=== PATIENT | male | born 1970 | race African-American/Black ===

== ENCOUNTER 2021-04-15 14:00 | Outpatient (CLI) | payer OTHER ==
[2021-04-15 15:09] LABS: Mean Corpuscular HGB CONC 32.5 g/dL (32.0-36.0); Mean Corpuscular Hemoglobin 28.4 pg (27.0-33.0); Mean Corpuscular Volume 87.3 fl (81.2-95.1); Mean Platelet Volume 9.8 fl (7.4-10.4); Platelet Count 311 10x3/uL (150-450); RBC Distribution Width 14.1 % (11.5-14.5); Red Blood Cell (RBC) Count 4.58 10x6/uL (4.32-5.72); White Blood Cell (WBC) Count 6.3 10x3/uL (3.5-10.5)
[2021-04-15 15:27] LABS: Anion Gap 14 mmol/L (10-20); BUN (Urea Nitrogen) 9 mg/dL (8.4-25.7); Calc. Creatinine Clearance 0 mL/min (70-130); Calcium 9.7 mg/dL (7.8-10.44); Carbon Dioxide 27 mmol/L (22-29); Chloride 104 mmol/L (98-107); Glucose 108 mg/dL (70-105); Potassium 4.5 mmol/L (3.5-5.1); Sodium 140 mmol/L (136-145)
[2021-04-16 15:31] LABS: SARS-CoV-2 PCR by NAA Not Detected (NotDetected)
== END 2021-04-15 14:01 | disposition home or self-care (01) ==
LOC: LABBT 14:00
PROVIDERS: ATTEND Neurological Surgery
DX: Z01.818 Encounter for other preprocedural examination (principal); M54.16 Radiculopathy, lumbar region; Z20.822 Contact with and (suspected) exposure to COVID-19
CPT/HCPCS: 80048; 85027; 93005; 93010; U0003; U0005

== ENCOUNTER 2021-04-20 06:20 | Day surgery (SDC) | payer OTHER ==
[2021-04-18 14:40] VITALS: BMI 30.7
[2021-04-20] MEDS ORDERED: SUGAMMADEX SODIUM 200 MG/2 ML VIAL ONE (06:56)
[2021-04-20] MEDS ORDERED: Fentanyl 100 MCG/2 ML VIAL ONE ×4 (06:56→11:20)
[2021-04-20] MEDS ORDERED: ceFAZolin 2 GM/DEX 5% 100 ML BAG ONE (07:23)
[2021-04-20] MEDS ORDERED: Ondansetron PF 4 MG/2 ML Vial ONE (07:48)
[2021-04-20] MEDS ORDERED: Lidocaine 1% PF 5 ML VIAL ONE (07:48)
[2021-04-20] MEDS ORDERED: Phenylephrine 10 MG/ML VIAL ONE (07:48)
[2021-04-20] MEDS ORDERED: PROPOFOL 200 MG/20 ML VIAL ONE (07:48)
[2021-04-20] MEDS ORDERED: Rocuronium Bromide 10 MG/ML (10ML VIAL) ONE (07:48)
[2021-04-20] MEDS ORDERED: Dexamethasone 20 MG/5 ML VIAL ONE (07:48)
[2021-04-20] MEDS ORDERED: HYDROmorphone 0.5 MG/0.5 ML SYRINGE ONE ×4 (10:26→11:01)
[2021-04-20] MEDS ORDERED: Tamsulosin HCl 0.4 MG CAP ONE (11:23)
[2021-04-20] MEDS ORDERED: Gabapentin 300 MG CAP ONE (12:15)
== END 2021-04-20 13:58 | disposition home or self-care (01) ==
LOC: SDC 06:20
PROVIDERS: ATTEND Neurological Surgery
PROC: 0SG00AJ Fusion of Lumbar Vertebral Joint with Interbody Fusion Device, Posterior Approach, Anterior Column, Open Approach (ICD-10-PCS; principal; 2021-04-20)
PROC: 0SG10J1 Fusion of 2 or more Lumbar Vertebral Joints with Synthetic Substitute, Posterior Approach, Posterior Column, Open Approach (ICD-10-PCS; principal; 2021-04-20)
PROC: 0QJY0ZZ Inspection of Lower Bone, Open Approach (ICD-10-PCS; principal; 2021-04-20)
DX: M54.16 Radiculopathy, lumbar region (principal); Z79.899 Other long term (current) drug therapy
CPT/HCPCS: 76000; C1713; C1768; C1776; J1170; J3010; J3370

== ENCOUNTER 2021-04-21 13:59 | Inpatient (IN) | payer MEDICARE, OTHER ==
[2021-04-21] MEDS ORDERED: Fentanyl 100 MCG/2 ML VIAL ONE ×2 (15:53→17:34)
[2021-04-21] MEDS ORDERED: Ondansetron PF 4 MG/2 ML Vial IVP PRN (17:12)
[2021-04-21] MEDS ORDERED: Promethazine 25 MG TAB PO PRN (17:12)
[2021-04-21] MEDS ORDERED: HYDROcodone/Acetaminophen 10/325 mg Tablet PO PRN (17:12)
[2021-04-21] MEDS ORDERED: diphenhydrAMINE 50 MG/ML VIAL IVP PRN (17:12)
[2021-04-21] MEDS ORDERED: Milk Of Magnesia 30 ML UDCUP PO PRN (17:12)
[2021-04-21] MEDS ORDERED: Mag-Al 1200 mg/1200 mg/30 ML UDCUP PO PRN (17:12)
[2021-04-21] MEDS: Morphine 4 MG/ML VIAL SLOW IVP PRN (21:01)
[2021-04-21] MEDS: Sodium Chloride 0.9% 1,000 ML IV SCH (21:06)
[2021-04-21] MEDS: Gabapentin 300 MG CAP PO SCH (21:06)
[2021-04-21] MEDS: oxyCODONE/Acetaminophen 5 mg/325 mg Tablet PO PRN (21:22)
[2021-04-21 22:59] VITALS: BMI 31.4
[2021-04-22] MEDS: oxyCODONE/Acetaminophen 5 mg/325 mg Tablet PO PRN ×5 (02:45→20:59)
[2021-04-22] MEDS: Sodium Chloride 0.9% 1,000 ML IV SCH (07:11)
[2021-04-22] MEDS: Gabapentin 300 MG CAP PO SCH ×3 (08:56→21:00)
[2021-04-22] MEDS: tiZANidine HCl 4 MG TAB PO PRN ×2 (08:56→21:00)
[2021-04-22] MEDS ORDERED: Docusate 100 MG CAP PO SCH (09:00)
[2021-04-22] MEDS: Morphine 4 MG/ML VIAL SLOW IVP PRN ×2 (09:10→18:42)
[2021-04-22] MEDS ORDERED: Venlafaxine HCl XR 75 MG CAP PO SCH (09:15)
[2021-04-22 15:52] VITALS: BP 147/83; TEMP 98.9
[2021-04-23] MEDS ORDERED: Venlafaxine HCl XR 75 MG CAP PO SCH (09:00)
== END 2021-04-22 21:16 | DRG 455 ==
LOC: ERS 13:59 → SJJU 17:12
PROVIDERS: ADMIT Neurological Surgery; ATTEND Neurological Surgery
PROC: 0QJY0ZZ Inspection of Lower Bone, Open Approach (ICD-10-PCS; principal; 2021-04-20)
PROC: 0SG00AJ Fusion of Lumbar Vertebral Joint with Interbody Fusion Device, Posterior Approach, Anterior Column, Open Approach (ICD-10-PCS; 2021-04-20)
PROC: 0SG10J1 Fusion of 2 or more Lumbar Vertebral Joints with Synthetic Substitute, Posterior Approach, Posterior Column, Open Approach (ICD-10-PCS; 2021-04-20)
DX: M54.16 Radiculopathy, lumbar region (principal); G89.18 Other acute postprocedural pain; E78.5 Hyperlipidemia, unspecified; I10 Essential (primary) hypertension; G89.29 Other chronic pain; F17.210 Nicotine dependence, cigarettes, uncomplicated; F43.10 Post-traumatic stress disorder, unspecified; E78.00 Pure hypercholesterolemia, unspecified; F41.9 Anxiety disorder, unspecified; F32.A Depression, unspecified; Z90.49 Acquired absence of other specified parts of digestive tract; Z98.1 Arthrodesis status; Z79.899 Other long term (current) drug therapy
CPT/HCPCS: 76000; 96374; 96376; C1713; C1768; C1776; J1100; J1170; J2270; J2370; J2405; J2704; J3010; J3370; J7050

== ENCOUNTER 2021-05-03 11:57 | Outpatient (CLI) | payer OTHER | END 2021-05-03 11:58 | disposition home or self-care (01) | LOC: TBSIIMAG 11:57 | PROVIDERS: ATTEND Neurological Surgery | DX: M51.16 Intervertebral disc disorders with radiculopathy, lumbar region (principal); M47.26 Other spondylosis with radiculopathy, lumbar region | CPT/HCPCS: 72100 ==

== ENCOUNTER 2022-02-03 14:30 | Inpatient (IN) | payer OTHER ==
[2022-02-24 10:02] VITALS: BMI 32.4
[2022-02-27] MEDS ORDERED: Lidocaine 1% MPF 2 ML VIAL ONE (06:29)
[2022-02-27] MEDS ORDERED: Sodium Chloride 0.9% 100 ML ONE (06:29)
[2022-02-27] MEDS ORDERED: CEFAZOLIN 2 GM VIAL ONE (06:29)
[2022-02-27] MEDS ORDERED: Midazolam HCl 2 mg/2 ml Vial ONE (07:11)
[2022-02-27] MEDS ORDERED: Ketamine 50 MG/ML (10ML VIAL) ONE (07:18)
[2022-02-27] MEDS ORDERED: fentaNYL Citrate/PF 100 MCG/2 ML SYRINGE ONE ×2 (07:18→08:55)
[2022-02-27] MEDS ORDERED: traMADol HCl 50 MG TAB PO PRN (07:23)
[2022-02-27] MEDS ORDERED: Cyclobenzaprine 10 MG TAB PO PRN (07:23)
[2022-02-27] MEDS ORDERED: Mag-Al 1200 mg/1200 mg/30 ML UDCUP PO PRN ×2 (07:23→19:14)
[2022-02-27] MEDS ORDERED: Promethazine 25 MG TAB PO PRN (07:23)
[2022-02-27] MEDS ORDERED: Ondansetron PF 4 MG/2 ML Vial IVP PRN (07:23)
[2022-02-27] MEDS ORDERED: Milk Of Magnesia 30 ML UDCUP PO PRN (07:23)
[2022-02-27] MEDS ORDERED: Morphine 2 MG/ML VIAL SLOW IVP PRN (07:23)
[2022-02-27] MEDS ORDERED: ePHEDrine 50 MG/ML VIAL ONE (07:25)
[2022-02-27] MEDS ORDERED: Ketorolac Tromethamine 30 MG/ML VIAL ONE (07:25)
[2022-02-27] MEDS ORDERED: PROPOFOL 200 MG/20 ML VIAL ONE (07:25)
[2022-02-27] MEDS ORDERED: NEOSTIGMINE 3 MG/3 ML SYR 3 MG/3 ML SYRINGE ONE (07:25)
[2022-02-27] MEDS ORDERED: PHENYLEPHRINE-NS 100 MCG/ML 10 ML SYRINGE ONE (07:25)
[2022-02-27] MEDS ORDERED: Esmolol 100 MG/10 ML VIAL ONE (07:25)
[2022-02-27] MEDS ORDERED: Glycopyrrolate 0.2 MG/ML 5 ML SYRINGE ONE (07:25)
[2022-02-27] MEDS ORDERED: oxyCODONE/Acetaminophen 5 mg/325 mg Tablet PO PRN (07:25)
[2022-02-27] MEDS ORDERED: Ondansetron PF 4 MG/2 ML Vial ONE (07:25)
[2022-02-27] MEDS ORDERED: Dexamethasone 20 MG/5 ML VIAL ONE (07:25)
[2022-02-27] MEDS ORDERED: Rocuronium Bromide 10 MG/ML (10ML VIAL) ONE (07:25)
[2022-02-27 07:28] LABS: SARS-CoV-2 NAA Rapid Test Not Detected (NotDetected)
[2022-02-27] MEDS ORDERED: Metoprolol Tartrate 50 MG TAB PO SCH (09:00)
[2022-02-27] MEDS ORDERED: Amlodipine 10 MG TAB PO SCH (09:00)
[2022-02-27] MEDS ORDERED: Venlafaxine HCl XR 75 MG CAP PO SCH (09:00)
[2022-02-27] MEDS ORDERED: Fentanyl 100 MCG/2 ML VIAL ONE ×2 (09:18→11:46)
[2022-02-27] MEDS ORDERED: Gabapentin 400 MG CAP PO SCH (15:00)
[2022-02-27] MEDS: CEFAZOLIN 2 GM in Sodium Chloride 0.9% 100 ML IVPB SCH ×2 (15:59→22:35)
[2022-02-27] MEDS: Sodium Chloride 0.9% 1,000 ML IV SCH ×2 (16:07→19:49)
[2022-02-27] MEDS ORDERED: traZODone HCl 50 MG TAB PO PRN (19:14)
[2022-02-27] MEDS ORDERED: Simethicone Chewable 80 MG TAB PO PRN (19:14)
[2022-02-27] MEDS ORDERED: Dicyclomine 10 MG CAP PO PRN (19:14)
[2022-02-27] MEDS ORDERED: HYDROcodone/Acetaminophen 10/325 mg Tablet PO PRN (19:17)
[2022-02-27] MEDS ORDERED: Artificial Tear Sol 15 ML BOT EA EYE PRN (19:27)
[2022-02-27] MEDS: Atorvastatin Calcium 20 MG TAB PO SCH (20:26)
[2022-02-27] MEDS: Gabapentin 400 MG CAP PO SCH (20:27)
[2022-02-27] MEDS: Tamsulosin HCl 0.4 MG CAP PO SCH (20:29)
[2022-02-27] MEDS: Metoprolol Tartrate 50 MG TAB PO SCH (20:29)
[2022-02-27] MEDS ORDERED: Atorvastatin Calcium 20 MG TAB PO SCH (21:00)
[2022-02-28] MEDS: oxyCODONE/Acetaminophen 5 mg/325 mg Tablet PO PRN ×4 (01:40→21:20)
[2022-02-28] MEDS ORDERED: Tamsulosin HCl 0.4 MG CAP PO SCH (06:00)
[2022-02-28] MEDS: tiZANidine HCl 4 MG TAB PO PRN ×3 (06:28→21:21)
[2022-02-28] MEDS ORDERED: FLU VACC QS2022-23(6MOS UP)/PF 60 MCG/0.5 ML SYRINGE IM ONE (09:00)
[2022-02-28] MEDS ORDERED: Docusate 100 MG CAP PO SCH (09:00)
[2022-02-28] MEDS ORDERED: Venlafaxine HCl XR 75 MG CAP PO SCH (09:00)
[2022-02-28] MEDS: Lidocaine 5% Patch TD SCH (09:02)
[2022-02-28] MEDS: Sodium Chloride 0.9% 1,000 ML IV SCH ×2 (09:07→22:28)
[2022-02-28] MEDS: Gabapentin 400 MG CAP PO SCH ×3 (09:10→21:18)
[2022-02-28] MEDS: Venlafaxine HCl XR 75 MG CAP PO SCH (09:11)
[2022-02-28] MEDS: Nortriptyline HCl 25 MG CAP PO SCH (09:11)
[2022-02-28] MEDS: Docusate 100 MG CAP PO SCH (09:11)
[2022-02-28] MEDS: Metoprolol Tartrate 50 MG TAB PO SCH ×2 (12:21→21:17)
[2022-02-28] MEDS: Amlodipine 10 MG TAB PO SCH (12:21)
[2022-02-28] MEDS: Tamsulosin HCl 0.4 MG CAP PO SCH (21:17)
[2022-02-28] MEDS: Atorvastatin Calcium 20 MG TAB PO SCH (21:18)
[2022-02-28] MEDS: Transdermal Patch Removal TOP SCH (21:22)
[2022-03-01] MEDS: oxyCODONE/Acetaminophen 5 mg/325 mg Tablet PO PRN ×3 (05:31→20:25)
[2022-03-01] MEDS: Metoprolol Tartrate 50 MG TAB PO SCH ×2 (08:09→20:23)
[2022-03-01] MEDS: Docusate 100 MG CAP PO SCH (08:09)
[2022-03-01] MEDS: Venlafaxine HCl XR 75 MG CAP PO SCH (08:10)
[2022-03-01] MEDS: Amlodipine 10 MG TAB PO SCH (08:10)
[2022-03-01] MEDS: Gabapentin 400 MG CAP PO SCH ×3 (08:10→20:24)
[2022-03-01] MEDS: Nortriptyline HCl 25 MG CAP PO SCH (08:10)
[2022-03-01] MEDS: Lidocaine 5% Patch TD SCH (08:11)
[2022-03-01] MEDS: Sodium Chloride 0.9% 1,000 ML IV SCH (08:14)
[2022-03-01] MEDS: Cephalexin 250 MG CAP PO SCH (18:14)
[2022-03-01] MEDS: tiZANidine HCl 4 MG TAB PO PRN (20:25)
[2022-03-01] MEDS: Atorvastatin Calcium 20 MG TAB PO SCH (20:26)
[2022-03-01] MEDS: Tamsulosin HCl 0.4 MG CAP PO SCH (20:26)
[2022-03-01] MEDS ORDERED: Cephalexin 250 MG/5 ML Oral Suspension PO SCH (21:00)
[2022-03-01] MEDS: Transdermal Patch Removal TOP SCH (22:41)
[2022-03-02] MEDS: Cephalexin 250 MG CAP PO SCH ×3 (00:01→11:52)
[2022-03-02] MEDS: Sodium Chloride 0.9% 1,000 ML IV SCH (00:15)
[2022-03-02] MEDS: oxyCODONE/Acetaminophen 5 mg/325 mg Tablet PO PRN ×2 (05:29→11:53)
[2022-03-02] MEDS: Nortriptyline HCl 25 MG CAP PO SCH (09:08)
[2022-03-02] MEDS: Docusate 100 MG CAP PO SCH (09:09)
[2022-03-02] MEDS: Amlodipine 10 MG TAB PO SCH (09:09)
[2022-03-02] MEDS: Lidocaine 5% Patch TD SCH (09:10)
[2022-03-02] MEDS: Gabapentin 400 MG CAP PO SCH ×2 (09:10→16:37)
[2022-03-02] MEDS: Venlafaxine HCl XR 75 MG CAP PO SCH (09:11)
[2022-03-02] MEDS: Metoprolol Tartrate 50 MG TAB PO SCH (09:12)
[2022-03-02 12:33] VITALS: BP 107/67; TEMP 98.4
== END 2022-03-02 16:48 | DRG 460 ==
LOC: SURG A 02-27 06:17 → SURG B 02-27 14:04
PROVIDERS: ADMIT Neurological Surgery; ATTEND Neurological Surgery
PROC: 0SG00K1 Fusion of Lumbar Vertebral Joint with Nonautologous Tissue Substitute, Posterior Approach, Posterior Column, Open Approach (ICD-10-PCS; principal; 2022-02-27)
PROC: 0SG30K1 Fusion of Lumbosacral Joint with Nonautologous Tissue Substitute, Posterior Approach, Posterior Column, Open Approach (ICD-10-PCS; 2022-02-27)
PROC: 0QP004Z Removal of Internal Fixation Device from Lumbar Vertebra, Open Approach (ICD-10-PCS; 2022-02-27)
PROC: 0QP104Z Removal of Internal Fixation Device from Sacrum, Open Approach (ICD-10-PCS; 2022-02-27)
PROC: 3E0U0GB Introduction of Recombinant Bone Morphogenetic Protein into Joints, Open Approach (ICD-10-PCS; 2022-02-27)
DX: T84.398A Other mechanical complication of other bone devices, implants and grafts, initial encounter (principal); M43.16 Spondylolisthesis, lumbar region; Z20.822 Contact with and (suspected) exposure to COVID-19; I10 Essential (primary) hypertension; E78.5 Hyperlipidemia, unspecified; F43.10 Post-traumatic stress disorder, unspecified; F41.9 Anxiety disorder, unspecified; K21.9 Gastro-esophageal reflux disease without esophagitis
CPT/HCPCS: 90471; 90686; 90732; 97139; C1713; G0008; G0009; J0690; J1100; J1885; J2250; J2405; J2704; J3010; J3370; J3490; J7050; U0002

== ENCOUNTER 2022-02-23 16:31 | Outpatient (CLI) | payer OTHER ==
[2022-02-23 17:23] LABS: Hemoglobin 12.5 g/dL (13.5-17.5); Mean Corpuscular HGB CONC 32.7 g/dL (32.0-36.0); Mean Corpuscular Hemoglobin 27.5 pg (27.0-33.0); Mean Corpuscular Volume 84.1 fl (81.2-95.1); Mean Platelet Volume 9.1 fl (7.4-10.4); Platelet Count 276 10x3/uL (150-450); RBC Distribution Width 13.9 % (11.5-14.5); Red Blood Cell (RBC) Count 4.54 10x6/uL (4.32-5.72); White Blood Cell (WBC) Count 7.9 10x3/uL (3.5-10.5)
[2022-02-23 17:50] LABS: Anion Gap 15 mmol/L (10-20); BUN (Urea Nitrogen) 6 mg/dL (8.4-25.7); Calc. Creatinine Clearance 0 mL/min (70-130); Calcium 9.4 mg/dL (7.8-10.44); Carbon Dioxide 24 mmol/L (22-29); Chloride 105 mmol/L (98-107); Estimated GFR 93; Glucose 95 mg/dL (70-105); Potassium 3.8 mmol/L (3.5-5.1); Sodium 140 mmol/L (136-145)
== END 2022-02-23 16:32 | disposition home or self-care (01) ==
LOC: LABBT 16:31
PROVIDERS: ATTEND Neurological Surgery
DX: Z01.818 Encounter for other preprocedural examination (principal)
CPT/HCPCS: 80048; 85027; 93005; 93010